=== PATIENT | female | born 1980 | race Hispanic/Latino ===

== ENCOUNTER 2017-03-08 14:02 | Outpatient (CLI) | payer OTHER | END 2017-03-08 19:48 | disposition home or self-care (01) | LOC: MAMMO 14:02 | DX: Z12.31 Encounter for screening mammogram for malignant neoplasm of breast (principal) ==

== ENCOUNTER 2018-03-09 09:39 | Outpatient (CLI) | payer OTHER | END 2018-03-09 20:17 | disposition home or self-care (01) | LOC: MAMMO 09:39 | DX: Z12.31 Encounter for screening mammogram for malignant neoplasm of breast (principal) ==

== ENCOUNTER 2019-08-09 14:50 | Outpatient (CLI) | payer OTHER | END 2019-08-09 19:30 | disposition home or self-care (01) | LOC: MAMMO 14:50 | DX: Z12.31 Encounter for screening mammogram for malignant neoplasm of breast (principal) ==

== ENCOUNTER 2019-08-30 09:00 | Outpatient (CLI) | payer OTHER | END 2019-08-30 20:28 | disposition home or self-care (01) | LOC: MRI 09:00 | DX: R41.82 Altered mental status, unspecified (principal); R41.3 Other amnesia | CPT/HCPCS: A9576 ==

== ENCOUNTER → 2019-11-08 | Outpatient (CLI) | payer OTHER | LOC: LAB 11:41 | DX: U07.1 COVID-19 (principal) | CPT/HCPCS: 87635; G2023; U0002 ==

== ENCOUNTER 2019-11-25 09:23 | Outpatient (CLI) | payer OTHER | END 2019-11-25 21:48 | disposition home or self-care (01) | LOC: LAB 09:23 | DX: Z86.19 Personal history of other infectious and parasitic diseases (principal) | CPT/HCPCS: 87635; G2023; U00003 ==

== ENCOUNTER 2019-12-18 12:44 | Outpatient (CLI) | payer OTHER | END 2019-12-18 19:52 | disposition home or self-care (01) | LOC: US 12:44 | DX: M79.606 Pain in leg, unspecified (principal); R60.0 Localized edema; R06.02 Shortness of breath | CPT/HCPCS: 36415; 82565; 84520; Q9963 ==

== ENCOUNTER 2020-05-15 10:44 | Emergency (ER) | payer OTHER ==
[~2020-05-15] VITALS: Ht 162.6 cm; Wt 89.4 kg
[2020-05-15 10:52] VITALS: TEMP 98.6
[2020-05-15 11:25] VITALS: BP 136/82
== END 2020-05-15 11:30 | disposition home or self-care (01) ==
LOC: ED 10:44
PROC: 0HQGXZZ Repair Left Hand Skin, External Approach (ICD-10-PCS; principal; 2020-05-15)
DX: S61.012A Laceration without foreign body of left thumb without damage to nail, initial encounter (principal); S60.411A Abrasion of left index finger, initial encounter; W26.0XXA Contact with knife, initial encounter; Y92.098 Other place in other non-institutional residence as the place of occurrence of the external cause
CPT/HCPCS: 99283; J7040

== ENCOUNTER 2023-01-29 15:27 | Emergency (ER) | payer OTHER ==
[~2023-01-29] VITALS: Ht 162.6 cm; Wt 74.8 kg
[2023-01-29 16:10] LABS: POTASSIUM 3.7 mmol/L (3.6-5.2)
[2023-01-29 16:11] LABS: PLATELET COUNT 295 K/uL (152-353)
[2023-01-30 07:21] VITALS: BP 148/88; TEMP 98.2
== END 2023-01-30 10:46 | disposition other institution (70) ==
LOC: ED 15:27
PROVIDERS: Family Medicine
DX: F22 Delusional disorders (principal); F29 Unspecified psychosis not due to a substance or known physiological condition; F41.9 Anxiety disorder, unspecified; F44.9 Dissociative and conversion disorder, unspecified; I10 Essential (primary) hypertension; F32.A Depression, unspecified; E11.65 Type 2 diabetes mellitus with hyperglycemia; Z79.4 Long term (current) use of insulin
CPT/HCPCS: 36415; 36600; 80053; 80307; 81002; 82550; 82805; 85027; 93005; 99285